=== PATIENT | female | born 1995 | race Two or more races ===

== ENCOUNTER 2020-03-20 05:25 | Day surgery (SDC) | payer BC ==
--- NOTE | 2020-03-19 13:36 | Pre-Procedure Note/Attestation ---
Pre-Procedure Note/Attestation Complete Prior to Procedure Planned Procedure: bilateral Procedure Narrative: 1. Septoplasty 2. SMR inf right turbinate 3. SMR inf left turbinate 4. Repair nasal deformity Indications for Procedure Pre-Operative Diagnosis: 1. Nasal septal deviation 2. Hypertrophied right inferior turbinate 3. hypertrophied left inferior turbinate 4. Repair nasal deformity Attestation I attest that I discussed the nature of the procedure; its benefits; risks and complications; and alternatives (and the risks and benefits of such alternatives), prior to the procedure, with the patient (or the patient's legal admitting representative). I attest that, if there was a reasonable possibility of needing a blood transfusion, the patient (or the patient's legal admitting representative) was given the [place] [employer] standardized written summary, pursuant to the Damion Luis Angel Blood Safety Act ([place] Health and Safety Code # 1645, as amended). I attest that I re-evaluated the patient just prior to the surgery and that there has been no change in the patient's H&P, dictated 03/19/2020 1335 job # [id number]: Mc Tomas MD Mar 19, 2020 13:36
--- NOTE | 2020-03-19 13:38 | Brief Operative Note ---
Immediate Post Operative Note Operative Note Chief Complaint: Nasal airway obstruction Pre-op Diagnosis: 1. Nasal septal deviation 2. Hypertrophied right inferior turbinate 3. hypertrophied left inferior turbinate 4. Repair nasal deformity Procedure: 1. Septoplasty 2. SMR inf right turbinate 3. SMR inf left turbinate 4. Repair nasal deformity Post-op Diagnosis: same as pre-op Surgeon: Mc Tomas MD Body And Frame Technician: none Additional Surgeons: none Anesthesiologist: Foster Anesthesia: general Specimen: none Complications: none Condition: stable Fluids: D5LR Estimated Blood Loss: volume - 75cc Drains: none Packing: SinoNasal gel Tourniquet time: 0 Implant(s) used?: No cM Tomas MD Mar 19, 2020 13:37
--- NOTE | 2020-03-19 13:40 | Discharge Instructions ---
Discharge Instructions Discharge Instructions Follow up with: Dr. Tomas [facility] office 03/26/2020 11:45 am Diet: regular Resume Normal Activity?: No Activity: light activity Pneumonia Vaccine: pt refused vaccine Influenza Vaccine (Jan to Jun): pt refused vaccine Follow Up Orders Pt has printed instructions and post op meds from pre op visit last week. Return to Work/School on: Apr 02, 2020 Special Instructions ice to face x 48 hours For Surgical Patients May shower: No For Congestive Heart Failure Reminder Report to your physician any weight gain of 5 pounds or more in one week. Mc Tomas MD Mar 19, 2020 13:40
--- NOTE | 2020-03-19 17:45 | Pre-op HX & Phy Repo 2 SIG ---
DATE OF ADMISSION: 03/20/2020 DATE OF SURGERY: 03/20/2020. INDICATION FOR SURGERY: The patient with nasal airway obstruction, nasal deformity for outpatient surgery. She is scheduled for a septoplasty, submucous resection of right and left inferior turbinates, and repair of nasal deformity. HISTORY OF PRESENT ILLNESS: She is a 24-year-old female, who has no allergies to medications. MEDICATIONS: Include Adderall and for postop, she has amoxicillin and [place]. PERSONAL AND PAST MEDICAL HISTORY: She is an ex-smoker stopped two years ago. Light alcohol. Single, no children. Denies a history of alcohol and drugs. She is an unemployed behavioral therapist. Eats all foods. FAMILY HISTORY: Diabetes mellitus, prostate cancer, and cardiovascular disease in her family but not her. PHYSICAL EXAMINATION: GENERAL: The patient is 5 feet 7.5 inches, 170 pounds. BMI 26.08. VITAL SIGNS: Temperature 97.8, when I last saw her a week ago. HEENT: Head is normocephalic. Eyes - PERRLA, EOMI. Lips, tongue, pharynx, and neck normal. Nose - pale boggy mucosa, hypertrophied right and left inferior turbinates and septum that is deviated to the left blocking 80% of the airway. She also has a nasal bone tip deformity. ASSESSMENT: Septal deviation and hypertrophied right and left inferior turbinates, and nasal deformity. PLAN: Surgery as noted above. She is cleared and stable. Please note, there was no need for laboratories as she is otherwise a healthy female under 40 years old. Mc Tomas M.D. : MADELYN JOB#: [id number] CC:
[2020-03-20] VITALS (9 sets, daily range): BP systolic 113–135; BP diastolic 66–85
[~2020-03-20] VITALS: Ht 172.7 cm; Wt 77.1 kg
[~2020-03-20 05:25] MED LIST: ADDERAL20 MG ORAL; AMOXICILLIN500 MG ORAL; CYMBALTA30 MG ORAL; MIRTAZAPINE15 M3 ORAL; NORCO 5-325 TA1 EAC1 ORAL
--- NOTE | 2020-03-20 06:51 | Anethesia Preoperative Eval ---
Anesthesia Pre-op PMH/ROS General Date of Evaluation: Mar 20, 2020 Time of Evaluation: 07:19 Anesthesiologist: Foster ASA Score: ASA 2 Mallampati Score Class I : Soft palate, uvula, fauces, pillars visible Class II: Soft palate, uvula, fauces visible Class III: Soft palate, base of uvula visible Class IV: Only hard plate visible Mallampati Classification: Class I Surgeon: Thom Diagnosis: Deviated Septum Surgical Procedure: Septoplasty, SMR Turbinates Family History: no anesthesia problems Allergies: Coded Allergies: No Known Allergies (Unverified , 03/16/20) Medications: see eMAR Patient NPO?: Yes Past Medical History Neurologic/Psychiatric: Reports: depression/anxiety, other - ADHD PSxH Narrative: L Ear Sx Anesthesia Pre-op Phys. Exam Physician Exam Last Vital Signs Date Time Temp Pulse Resp B/P (MAP) Pulse Ox O2 Delivery O2 Flow Rate FiO2 03/20/20 05:52 Room Air 03/20/20 05:52 98.6 85 18 113/66 99 Constitutional: NAD Neurologic: CN 2-12 intact Cardiovascular: RRR Respiratory: CTA Gastrointestinal: S/NT/ND Airway Exam Mallampati Score: Class I MO: full ROM: full Teeth: intact Anesthesia Pre-op A/P Labs Urine Test Test 03/20/20 05:30 Urine HCG, Qualitative Negative (NEGATIVE) Risk Assessment & Plan Assessment: ASA 2 Plan: GA, SED Status Change Before Surgery: No Pre-Antibiotics Dru Gram Ancef IV Given Within 1 Hr of Incision: Yes Time Given: 07:40 Mamadou Hutchison MD Mar 20, 2020 06:51
[2020-03-20] MEDS ORDERED: oxyCODONE HCL/Acetaminophen 5/325mg ORAL PRN (07:00)
[2020-03-20] MEDS ORDERED: Ketorolac 30mg Inj IV PRN ×2 (07:00)
[2020-03-20] MEDS ORDERED: LR 1000ml 1,000 ML IVLG SCH (07:00)
[2020-03-20] MEDS ORDERED: Labetalol 5mg/ml 20ml vial IV PRN (07:00)
[2020-03-20] MEDS ORDERED: Meperidine 25mg/1ml Inj (FOR RIGORS ONLY) IV PRN (07:00)
[2020-03-20] MEDS ORDERED: fentaNYL 100 mcg/2 mL IV PRN (07:00)
[2020-03-20] MEDS ORDERED: Acetaminophen (Non formulary) 100 ML IV ONE (07:00)
[2020-03-20] MEDS ORDERED: NS Irrig 1000ml ONE (07:00)
[2020-03-20] MEDS ORDERED: Midazolam 2mg/2ml Inj IVP PRN (07:00)
[2020-03-20] MEDS ORDERED: Hydromorphone 0.5mg/0.5ml inj IVP PRN (07:00)
[2020-03-20] MEDS ORDERED: DiphenhydrAMINE 50mg/ml Inj IVP PRN (07:00)
[2020-03-20] MEDS ORDERED: LR 1000ml ONE (07:00)
[2020-03-20] MEDS ORDERED: HYDROcodone/Acetamin 5/325 tab ORAL PRN ×2 (07:00→09:00)
[2020-03-20] MEDS ORDERED: Sterile Water Irrig 1000ml IRRIG ONE (07:00)
[2020-03-20] MEDS ORDERED: HYDROcodone/Acetamin 7.5/325 tab ORAL PRN (07:00)
[2020-03-20] MEDS ORDERED: Metoclopramide 10mg/2ml Inj IVP PRN ×2 (07:00→09:00)
[2020-03-20] MEDS ORDERED: Atropine Sulfate 0.4mg/ml inj IVP PRN (07:00)
[2020-03-20] MEDS ORDERED: ceFAZolin sod 1 GM in D5W 55 ML IV ONE (07:00)
[2020-03-20] MEDS ORDERED: LORazepam Inj 2mg/ml 1ml IV PRN (07:00)
--- NOTE | 2020-03-20 07:02 | Immediate Post-Op Evaluation ---
Immediate Post-Op Evalulation Immediate Post-Op Evalulation Procedure: Septoplasty, SMR Turbinates Date of Evaluation: Mar 20, 2020 Time of Evaluation: 09:10 IV Fluids: 800 LR Blood Products: 0 Estimated Blood Loss: 75 Urinary Output: 0 Blood Pressure Systolic: 128 Blood Pressure Diastolic: 74 Pulse Rate: 116 Respiratory Rate: 16 O2 Sat by Pulse Oximetry: 100 Temperature (Fahrenheit): 98.2 Pain Score (1-10): 2 Nausea: No Vomiting: No Complications 0 Patient Status: awake, reacts, patent, none Hydration Status: adequate Dru Gram Ancef IV Given Within 1 Hr of Incision: Yes Time Given: 07:40 Mamadou Hutchison MD Mar 20, 2020 07:02
--- NOTE | 2020-03-20 07:03 | 48 Hour Post Anesthesia Eval ---
Post Anesthesia Evaluation Procedure: Septoplasty, SMR Turbinates Date of Evaluation: Mar 20, 2020 Time of Evaluation: 11:23 Blood Pressure Systolic: 117 0: 72 Pulse Rate: 89 Respiratory Rate: 18 Temperature (Fahrenheit): 98.4 O2 Sat by Pulse Oximetry: 100 Airway: patent Nausea: No Vomiting: No Pain Intensity: 2 Hydration Status: adequate Cardiopulmonary Status: Stable Mental Status/LOC: patient returned to baseline Follow-up Care/Observations: 0 Post-Anesthesia Complications: 0 Follow-up care needed: ready to discharge Mamadou Hutchison MD Mar 20, 2020 07:03
[2020-03-20] MEDS ORDERED: Cocaine HCl 4% 4ml vial TOPIC ONE (07:11)
[2020-03-20] MEDS ORDERED: Lidocaine 1%/ 10mg/ml/EPI 0.01mg/ml 20ml INJ ONE (07:11)
[2020-03-20] MEDS ORDERED: Bupivacaine 0.5% Inj 30 ml vial INJ ONE (07:11)
[2020-03-20] MEDS ORDERED: Lidocaine 1% MPF 10mg/ml 5ml ONE (07:13)
[2020-03-20] MEDS ORDERED: Sodium Chloride 10ml vial INJ ONE (07:13)
[2020-03-20] MEDS ORDERED: fentaNYL 100 mcg/2 mL IV ONE (07:14)
[2020-03-20] MEDS ORDERED: HYDROmorphone 1mg/ml Carpuject SUBQ PRN (09:00)
--- NOTE | 2020-03-20 11:15 | Operative Note - Dictated ---
DATE OF OPERATION: 03/20/2020 SURGEON: Mc Tomas MD. DECORATING INSPECTOR: None. ANESTHESIOLOGIST: Mamadou Hutchison MD. ANESTHESIA: LMA general with 20 mL of 50:50 mixture 1% lidocaine with 100,000 epinephrine and Sensorcaine without epinephrine 0.5%. Additionally, 4 mL of 4% topical cocaine were placed on four nasal pledgets, two on either nostril, which were accounted for at the end of the case. INDICATION FOR SURGERY: Nasal airway obstruction, hypertrophied secondary to hypertrophied right and left inferior turbinates and septal deviation. Additionally, nasal deformity. PREOPERATIVE DIAGNOSIS: Nasal airway obstruction, hypertrophied secondary to hypertrophied right and left inferior turbinates and septal deviation. Additionally, nasal deformity. POSTOPERATIVE DIAGNOSIS: Nasal airway obstruction, hypertrophied secondary to hypertrophied right and left inferior turbinates and septal deviation. Additionally, nasal deformity. FINDINGS: Nasal airway obstruction, hypertrophied secondary to hypertrophied right and left inferior turbinates and septal deviation. Additionally, nasal deformity. PROCEDURE: 1. Septoplasty. 2. Submucous resection, right inferior turbinate. 3. Submucous resection, left inferior turbinate. 4. Repair of nasal deformity. TECHNIQUE: The patient prepped and draped in the usual manner via LMA general anesthesia. A time-out was performed and all agreed as to the procedure to be done. I injected the aforementioned lidocaine, Marcaine, and epinephrine mixture. I also placed the lidocaine epinephrine mixture. Initially, I made incision in the right inferior turbinate and passed the radiofrequency wand, setting of 6, 10 seconds each time after coating with gel. It was passed twice. I then outfractured with a Boies elevator. I then turned my attention to the left nares. Made an incision in the anterior inferior aspect of the inferior turbinate. Radiofrequency wand, setting of 6, coated with saline gel was passed twice for 10 seconds each time. I then outfractured with a Boies elevator. I then made an incision on the left septum. Britton incision with a 15 blade. I then elevated subperiosteally and subperichondrially on either side of the cartilage with a dental elevator. I cut out the lower 5 mm of septum leaving a centimeter inferiorly. The vomer on the left side was also removed with a straight osteotome. The flap was then closed with a 4-0 plain suture. I then made between the cartilage incision, stab incision. elevated with an Aufricht and removed the nasal deformity with a gouge osteotome. I then used angled osteotomies to make lower lateral osteotomies. I then proceeded to complete the fracture and filed the anterior nose. I then delivered the lower lateral cartilage with a rim incision. Small curved scissors and then removing the lower lateral cartilage bilaterally leaving 4 mm inferiorly. I then morselized the superior angle of the lower lateral cartilage. This was closed with two 5-0 dissolving sutures at the rim. Area was suctioned clean and I placed sinonasal gel one syringe between the two nares. Mustache dressing was placed. ESTIMATED BLOOD LOSS: 75 mL. COUNTS: None. DRAINS: None. The patient was awake and alert, and stable in the operating room and 15 minutes later in the recovery room. Mc Tomas M.D. : TELMA JOB#: [id number] CC:
== END 2020-03-21 11:45 | disposition home or self-care (01) ==
LOC: SUR 05:25
DX: J34.89 Other specified disorders of nose and nasal sinuses (principal); J34.3 Hypertrophy of nasal turbinates; J34.2 Deviated nasal septum; Z87.891 Personal history of nicotine dependence; F32.9 Major depressive disorder, single episode, unspecified; F41.9 Anxiety disorder, unspecified
CPT/HCPCS: 30140; 30520; 30999; 81025; 94003; C9046; J0131; J0690; J1100; J2250; J2405; J2704; J3010; J3490; J7120; U0002; 94150